=== PATIENT | female | born 1970 | race Caucasian/White ===

== ENCOUNTER 2017-03-01 13:33 | Inpatient (IN) | payer OTHER ==
[2017-03-01 15:05] VITALS: BMI 32.5
--- NOTE | 2017-03-01 17:20 | HP ---
CIWA Score - CIWA Score Nausea/Vomitin Muscle Tremors: 3 Anxiety: 3 Agitation: 0-Normal Activity Paroxysmal Sweats: 3 Orientation: 0-Oriented Tacttile Disturbances: 0-None Auditory Disturbances: 2-Mild Harshness/Frighten Visual Disturbances: 2-Mild Sensitivity Headache: 3-Moderate CIWA-Ar Total Score: 21 Admission ROS BHS - HPI Chief Complaint: "I'm here because I want to Detox from alcohol because I have never been so messed up in my life." Pt. is here to Detox from alcohol. Allergies/Adverse Reactions: Allergies Allergy/AdvReac Type Severity Reaction Status Date / Time ferrous fumarate Allergy Unknown Verified 03/01/17 16:39 [From Liver W/Iron] liver extract Allergy Unknown Verified 03/01/17 16:39 [From Liver W/Iron] vitamin B complex and C Allergy Unknown Verified 03/01/17 16:39 [From Liver W/Iron] History of Present Illness: Pt. is a 47 YO female here to Detox form Alcohol. Pt.has had 1 previous Detox admission at [facility] (2011). Pt. is a MMTP client at [facility] ([place] Daily Maintenance Dose: 70 mg PO. Last Day medicated: Today, 03/01/2017. Exam Limitations: No Limitations - Ebola screening Have you traveled outside of the country in the last 21 days: No Have you had contact with anyone from an Ebola affected area: No Have you been sick,other than usual withdrawal symptoms: No Do you have a fever: No - Review of Systems Constitutional: Chills, Diaphoresis, Fever, Loss of Appetite, Malaise, Night Sweats, Changes in sleep, Unintentional Wgt. Loss (Lost approx. 20 lbs. over last 3 months.) EENT: reports: Other (Upper Denture.) Respiratory: reports: SOB with Exertion Cardiac: reports: Palpitations, Syncope (Last episode: approx. 2 days ago. Pt. was not evaluated in ER after.) GI: reports: Constipated, Poor Appetite : reports: Incontinence Musculoskeletal: reports: Back Pain, Neck Pain Integumentary: reports: No Symptoms Reported Neuro: reports: Headache, Seizure (Due to Drug Withdrawal: approx. 1 month ago. Patient was not evaluated in ER after incident.), Tremors Endocrine: reports: No Symptoms Reported Hematology: reports: No Symptoms Reported Psychiatric: reports: Judgement Intact, Mood/Affect Appropiate, Orientated x3, Anxious, Depressed (On meds.) Other Systems: Reviewed and Negative Patient History - Patient Medical History Hx Anemia: No Hx Asthma: Yes Hx Chronic Obstructive Pulmonary Disease (COPD): No Hx Cancer: No Hx Cardiac Disorders: Yes (Heart Murmur.) Hx Congestive Heart Failure: No Hx Hypertension: Yes (On meds.) Hx Hypercholesterolemia: Yes (gemfibrozil) Hx Pacemaker: No HX Cerebrovascular Accident: No Hx Seizures: Yes (drug related-last episode was a month ago) Hx Dementia: No Hx Diabetes: Yes (NIDDM) Hx Gastrointestinal Disorders: Yes (acid reflux) Hx Liver Disease: No Hx Genitourinary Disorders: No Hx Sexually Transmitted Disorders: No Hx Renal Disease (ESRD): No (Pt. has 1 kidney; Donated Left Kidney (2001).) Hx Thyroid Disease: No Hx Human Immunodeficiency Virus (HIV): No (Last tested: approx. 1 month ago: NEGATIVE.) Hx Hepatitis C: No (Negative; Cannot remember when last tested.) Hx Depression: Yes (and Anxiety; On meds.) Hx Suicide Attempt: Yes (cut left wrist at age 16; PATIENT DENIES CURRENT SI/HI. ) Hx Bipolar Disorder: Yes (On meds.) Hx Schizophrenia: Yes Other Medical History: DENIES. - Patient Surgical History Past Surgical History: Yes Hx Neurologic Surgery: No Hx Cataract Extraction: No Hx Cardiac Surgery: No Hx Lung Surgery: No Hx Breast Surgery: No Hx Breast Biopsy: No Hx Abdominal Surgery: No Hx Appendectomy: No Hx Cholecystectomy: No Hx Genitourinary Surgery: No Hx Section: Yes (4 c-sections) Hx Orthopedic Surgery: No Other Surgical History: left nephrectomy in 06/26/2001 Anesthesia Reaction: No - PPD History Previous Implant?: Yes Documented Results: Negative w/o proof Implanted On Prior R Admission?: Yes Date: 10/03/11 PPD to be Administered?: Yes - Reproductive History Patient is a Female of Child Bearing Age (11 -55 yrs old): Yes Last Menstrual Period: 08/29/11 Patient : No - Smoking Cessation Smoking history: Current every day smoker Have you smoked in the past 12 months: Yes Aproximately how many cigarettes per day: 10 Cigars Per Day: 0 Hx Chewing Tobacco Use: No Initiated information on smoking cessation: Yes 'Breaking Loose' booklet given: 03/01/17 (GIVEN ON UNIT.) - Substance & Tx. History Hx Alcohol Use: Yes Hx Substance Use: Yes Substance Use Type: Alcohol, Opiates, Prescribed (MMTP: 70 MG.) Hx Substance Use Treatment: Yes (1 Previous Detox admission at [facility] in 2011.) - Substances Abused Alcohol-vodka/tequila Route: Oral Frequency: Daily Amount used: 2 pts. Age of first use: 46 Date of Last Use: 03/01/17 Family Disease History - Family Disease History Family History: Denies Admission Physical Exam S - Vital Signs Vital Signs: Vital Signs - 24 hr 03/01/17 14:58 Temperature 97 F L Pulse Rate 110 H Respiratory 20 Rate Blood Pressure 107/74 - Physical General Appearance: Yes: Nourished, Appropriately Dressed, Moderate Distress, Tremorous, Irritable, Sweating, Anxious HEENTM: Yes: Hearing grossly Normal, Normocephalic, Normal Voice, GERONIMO, Pharynx Normal Respiratory: Yes: Chest Non-Tender, Lungs Clear, No Respiratory Distress, No Accessory Muscle Use Neck: Yes: No masses,lesions,Nodules, Supple, Trachea in good position Breast: Yes: Breast Exam Deferred Cardiology: Yes: Regular Rhythm, Regular Rate, S1, S2 Abdominal: Yes: Normal Bowel Sounds, Non Tender, Soft, Protuberent Genitourinary: Yes: Incontinient Back: Yes: Decreased Range of Motion Musculoskeletal: Yes: Gait Steady, Back pain, Joint Stiffness Extremities: Yes: Tremors Neurological: Yes: Fully Oriented, Alert, Normal Mood/Affect, Normal Response Integumentary: Yes: Normal Color, Warm, Diaphoresis Lymphatic: Yes: Within Normal Limits - Diagnostic (1) Alcohol dependence with uncomplicated withdrawal Current Visit: Yes Status: Acute (2) Methadone maintenance therapy patient Current Visit: Yes Status: Chronic (3) Opioid dependence on agonist therapy Current Visit: Yes Status: Chronic (4) Nicotine dependence Current Visit: Yes Status: Chronic Qualifiers: Nicotine product type: cigarettes Substance use status: uncomplicated Qualified Code(s): F17.210 - Nicotine dependence, cigarettes, uncomplicated (5) Asthma Current Visit: Yes Status: Chronic Qualifiers: Asthma severity: mild intermittent Asthma complication type: uncomplicated Qualified Code(s): J45.20 - Mild intermittent asthma, uncomplicated (6) Hypertension Current Visit: Yes Status: Chronic Qualifiers: Hypertension type: essential hypertension Qualified Code(s): I10 - Essential (primary) hypertension (7) History of depression Current Visit: Yes Status: Chronic (8) History of bipolar disorder Current Visit: Yes Status: Chronic (9) History of schizophrenia Current Visit: Yes Status: Chronic (10) Type II diabetes mellitus Current Visit: Yes Status: Chronic Qualifiers: Diabetes mellitus complication status: without complication Diabetes mellitus local intermodal truck driver insulin use: without local intermodal truck driver use Qualified Code(s): E11.9 - Type 2 diabetes mellitus without complications (11) History of cardiac murmur Current Visit: Yes Status: Chronic (12) Hypercholesterolemia Current Visit: Yes Status: Chronic (13) History of seizures Current Visit: Yes Status: Chronic Comment: Due to Drug withdrawal. (14) Heartburn Current Visit: Yes Status: Chronic (15) H/O kidney donation Current Visit: Yes Status: Chronic Cleared for Admission [facility] - Detox or Rehab [facility] Level of Care: Medically Managed Detox Regimen/Protocol: Librium [facility] Breath Alcohol Content Breath Alcohol Content: 0.065 Urine Pregancy Test - Result Urine Test Results: Negative- NO Line Present Urine Drug Screen - Results Drug Screen Negative: No Urine Drug Screen Results: BZO-Benzodiazepines, MTD-Methadone
[2017-03-01] MEDS ORDERED: IBUPROFEN 400 MG TABLET (FP) PO PRN (17:59)
[2017-03-01] MEDS ORDERED: hydrOXYzine PAMOATE 50 MG CAPSULE (FP) PO PRN (17:59)
[2017-03-01] MEDS ORDERED: MAGNESIUM CITRATE 300 ML BOTTLE PO PRN (17:59)
[2017-03-01] MEDS ORDERED: MENTHOL/PHENOL 1 EACH UD MM PRN (17:59)
[2017-03-01] MEDS ORDERED: NICOTINE POLACRILEX 2 MG GUM BC PRN (17:59)
[2017-03-01] MEDS ORDERED: guaiFENesin/D-METHORPHAN HB 10 ML UNIT-DOSE CUPS PO PRN (17:59)
[2017-03-01] MEDS ORDERED: LOPERAMIDE HCL 2 MG CAPSULE PO PRN (17:59)
[2017-03-01] MEDS ORDERED: diphenhydrAMINE HCL 50 MG CAPSULE PO PRN (17:59)
[2017-03-01] MEDS ORDERED: MAG HYDROX/AL HYDROX/SIMETH 30 ML UNIT-DOSE CUP PO PRN (17:59)
[2017-03-01] MEDS ORDERED: ACETAMINOPHEN 325 MG TABLET (FP) PO PRN (17:59)
[2017-03-01] MEDS ORDERED: P-EPHED 60MG/TRIPROLIDI 2.5MG TABLET PO PRN (17:59)
[2017-03-01] MEDS ORDERED: MAGNESIUM HYDROX 2400MG/30ML ORAL SUSPENSION 30 ML CUP PO PRN (17:59)
[2017-03-01] MEDS ORDERED: chlordiazePOXIDE HCL 25 MG CAPSULE PO PRN (17:59)
[2017-03-01] MEDS ORDERED: ALBUTEROL SO4 6.7 GM HFA INHALER IH PRN (18:04)
[2017-03-01] MEDS ORDERED: metFORMIN HCL 500 MG TABLET (FP) PO SCH (18:15)
[2017-03-01] MEDS ORDERED: chlordiazePOXIDE HCL 25 MG CAPSULE PO ONE (19:15)
[2017-03-01] MEDS: NICOTINE 21 MG/24 HOURS TOPICAL PATCH TD SCH (20:48)
[2017-03-01] MEDS: chlordiazePOXIDE HCL 25 MG CAPSULE PO SCH (22:49)
[2017-03-01] MEDS: AMMONIUM LACTATE 12% LOTION 225 GM BOTTLE TP SCH (22:49)
[2017-03-01 23:31] LABS: URINE APPEARANCE SLCLOUDY; URINE BILIRUBIN NEGATIVE (NEGATIVE); URINE BLOOD NEGATIVE (NEGATIVE); URINE COLOR LTYELLOW; URINE GLUCOSE (UA) NEGATIVE (NEGATIVE); URINE KETONE NEGATIVE (NEGATIVE); URINE NITRITE NEGATIVE (NEGATIVE); URINE PROTEIN NEGATIVE (NEGATIVE); URINE UROBILINOGEN NEGATIVE mg/dL (0.2-1.0)
[2017-03-01 23:37] LABS: URINE LEUK ESTERASE 2+ (NEGATIVE)
[2017-03-01 23:39] LABS: URINE BACTERIA RARE /hpf (NONE SEEN); URINE RBC <1 /hpf (0-3); URINE WBC 14 /hpf (3-5)
[2017-03-02] MEDS: chlordiazePOXIDE HCL 25 MG CAPSULE PO SCH ×4 (05:38→22:40)
[2017-03-02] MEDS: metFORMIN HCL 500 MG TABLET (FP) PO SCH ×2 (08:49→18:08)
[2017-03-02] MEDS ORDERED: METHADONE HCL 10 MG TABLET PO SCH (09:45)
[2017-03-02] MEDS ORDERED: METHADONE HCL 40 MG DISPERSABLE TABLET ONE (10:12)
[2017-03-02] MEDS ORDERED: METHADONE HCL 10 MG TABLET ONE (10:13)
[2017-03-02] MEDS: HYDROCHLOROTHIAZIDE 25 MG TABLET (FP) PO SCH (10:25)
[2017-03-02] MEDS: FUROSEMIDE 40 MG TABLET (FP) PO SCH (10:25)
[2017-03-02] MEDS: AMMONIUM LACTATE 12% LOTION 225 GM BOTTLE TP SCH ×2 (10:25→22:41)
[2017-03-02] MEDS: LISINOPRIL 5 MG TABLET (FP) PO SCH (10:25)
[2017-03-02] MEDS: ASPIRIN 81 MG CHEWABLE TABLETS PO SCH (10:25)
[2017-03-02] MEDS: NICOTINE 21 MG/24 HOURS TOPICAL PATCH TD SCH (10:26)
[2017-03-02] MEDS: METHADONE 40 MG, METHADONE 30 MG PO SCH (10:26)
[2017-03-02 10:46] LABS: MCH 32.8 pg (25.7-33.7); MEAN CELL VOLUME 96.4 fl (80-96); PLATELET COUNT 187 K/MM3 (134-434); RDW 13.2 % (11.6-15.6); WHITE BLOOD COUNT 5.8 K/mm3 (4.0-10.0)
[2017-03-02 10:52] LABS: ALBUMIN 3.2 g/dl (3.4-5.0); SGOT/AST 35 U/L (15-37); SGPT/ALT 51 U/L (12-78)
[2017-03-02 10:55] LABS: ALK PHOS 83 U/L (45-117); ANION GAP 9 (8-16); BILIRUBIN,TOTAL 0.4 mg/dL (0.2-1.0); CALCIUM 8.3 mg/dL (8.5-10.1); CO2 31 mmol/L (21-32); CREATININE 0.9 mg/dL (0.55-1.02); GLUCOSE,RANDOM 101 mg/dL (74-106); TOT PROT 6.1 g/dl (6.4-8.2)
--- NOTE | 2017-03-02 13:52 | PN ---
S CIWA - CIWA Score Nausea/Vomitin Muscle Tremors: 3 Anxiety: 3 Agitation: 4-Moderately Restless Paroxysmal Sweats: 3 Orientation: 0-Oriented Tacttile Disturbances: 1-Very Mild Itch/Numbness Auditory Disturbances: 1-Very Mild Visual Disturbances: 1-Very Mild Sensitivity Headache: 2-Mild CIWA-Ar Total Score: 20 BHS Progress Note (SOAP) Subjective: irritability, anxiety, anxious, generalized body aches Objective: 03/02/17 13:51 Vital Signs - 8 hr 03/02/17 03/02/17 06:59 11:14 Temperature 96.4 F L 97.7 F Pulse Rate 56 L 74 Respiratory 18 20 Rate Blood Pressure 102/61 96/68 Laboratory Last Values WBC 5.8 K/mm3 (4.0-10.0) D 03/02/17 08:00 RBC 3.57 M/mm3 (3.60-5.2) L 03/02/17 08:00 Hgb 11.7 GM/dL (10.7-15.3) 03/02/17 08:00 Hct 34.4 % (32.4-45.2) 03/02/17 08:00 MCV 96.4 fl (80-96) H 03/02/17 08:00 MCH 32.8 pg (25.7-33.7) D 03/02/17 08:00 MCHC 34.0 g/dl (32.0-36.0) 03/02/17 08:00 RDW 13.2 % (11.6-15.6) 03/02/17 08:00 Plt Count 187 K/MM3 (134-434) D 03/02/17 08:00 MPV 8.0 fl (7.5-11.1) 03/02/17 08:00 Sodium 136 mmol/L (136-145) 03/02/17 08:00 Potassium 3.2 mmol/L (3.5-5.1) L D 03/02/17 08:00 Chloride 96 mmol/L (98-107) L 03/02/17 08:00 Carbon Dioxide 31 mmol/L (21-32) 03/02/17 08:00 Anion Gap 9 (8-16) 03/02/17 08:00 BUN 34 mg/dL (7-18) H D 03/02/17 08:00 Creatinine 0.9 mg/dL (0.55-1.02) 03/02/17 08:00 Creat Clearance w eGFR > 60 (>60) 03/02/17 08:00 POC Glucometer 125 UNITS (()) 03/02/17 05:40 Random Glucose 101 mg/dL (74-106) D 03/02/17 08:00 Calcium 8.3 mg/dL (8.5-10.1) L 03/02/17 08:00 Total Bilirubin 0.4 mg/dL (0.2-1.0) D 03/02/17 08:00 AST 35 U/L (15-37) D 03/02/17 08:00 ALT 51 U/L (12-78) D 03/02/17 08:00 Alkaline Phosphatase 83 U/L (45-117) D 03/02/17 08:00 Total Protein 6.1 g/dl (6.4-8.2) L D 03/02/17 08:00 Albumin 3.2 g/dl (3.4-5.0) L D 03/02/17 08:00 Urine Color Ltyellow 03/01/17 22:03 Urine Appearance Slcloudy 03/01/17 22:03 Urine pH 7.0 (5.0-8.0) 03/01/17 22:03 Urine Protein Negative (NEGATIVE) 03/01/17 22:03 Urine Glucose (UA) Negative (NEGATIVE) 03/01/17 22:03 Urine Ketones Negative (NEGATIVE) 03/01/17 22:03 Urine Blood Negative (NEGATIVE) 03/01/17 22:03 Urine Nitrite Negative (NEGATIVE) 03/01/17 22:03 Urine Bilirubin Negative (NEGATIVE) 03/01/17 22:03 Urine Urobilinogen Negative mg/dL (0.2-1.0) 03/01/17 22:03 Urine RBC <1 /hpf (0-3) 03/01/17 22:03 Urine WBC 14 /hpf (3-5) 03/01/17 22:03 Ur Epithelial Cells Rare /hpf (FEW) 03/01/17 22:03 Urine Bacteria Rare /hpf (NONE SEEN) 03/01/17 22:03 RPR Titer Nonreactive (NONREACTIVE) 03/02/17 08:00 labs noted Assessment: 03/02/17 13:51 withdrawal sx Plan: continue detox
--- NOTE | 2017-03-02 14:15 | PN ---
BHS Progress Note Note: Patient with potassium level of 3.2. Potassium supplement 20meq ordered for 3 days.
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
[2017-03-02] MEDS: POTASSIUM CHLORIDE TABS 20 MEQ TABLET.ER (FP) PO SCH (15:33)
[2017-03-02] MEDS: ARIPiprazole 15 MG TABLET PO SCH (22:39)
[2017-03-02] MEDS: ZOLPIDEM TARTRATE 10 MG TABLET (PARK CARE ONLY) PO PRN (22:40)
[2017-03-03] MEDS ORDERED: METHADONE HCL 40 MG DISPERSABLE TABLET ONE (05:16)
[2017-03-03] MEDS ORDERED: METHADONE HCL 10 MG TABLET ONE (05:16)
[2017-03-03] MEDS: chlordiazePOXIDE HCL 25 MG CAPSULE PO SCH ×3 (06:06→17:24)
[2017-03-03] MEDS: METHADONE 40 MG, METHADONE 30 MG PO SCH (06:07)
[2017-03-03] MEDS: metFORMIN HCL 500 MG TABLET (FP) PO SCH ×2 (07:04→17:24)
--- NOTE | 2017-03-03 10:38 | PN ---
[facility] CIWA - CIWA Score Nausea/Vomitin-No Nausea/No Vomiting Muscle Tremors: 3 Anxiety: 4-Mod. Anxious/Guarded Agitation: 3 Paroxysmal Sweats: 3 Orientation: 0-Oriented Tacttile Disturbances: 0-None Auditory Disturbances: 0-None Visual Disturbances: 0-None Headache: 0-None Present CIWA-Ar Total Score: 13 S Progress Note (SOAP) Subjective: Anxiety,tremors,interrupted sleep,restless Objective: 03/03/17 10:36 Vital Signs - 8 hr 03/03/17 03/03/17 03:30 06:42 Temperature 97.2 F L Pulse Rate 58 L Respiratory 18 16 Rate Blood Pressure 103/57 Laboratory Tests 03/01/17 03/01/17 03/02/17 17:09 22:03 05:40 WBC RBC Hgb Hct MCV MCH MCHC RDW Plt Count MPV Sodium Potassium Chloride Carbon Dioxide Anion Gap BUN Creatinine Creat Clearance w eGFR POC Glucometer 157 125 Random Glucose Calcium Total Bilirubin AST ALT Alkaline Phosphatase Total Protein Albumin Urine Color Ltyellow Urine Appearance Slcloudy Urine pH 7.0 Urine Protein Negative Urine Glucose (UA) Negative Urine Ketones Negative Urine Blood Negative Urine Nitrite Negative Urine Bilirubin Negative Urine Urobilinogen Negative Urine RBC <1 Urine WBC 14 Ur Epithelial Cells Rare Urine Bacteria Rare RPR Titer 03/02/17 03/02/17 03/02/17 08:00 08:00 08:00 WBC 5.8 D RBC 3.57 L Hgb 11.7 Hct 34.4 MCV 96.4 H MCH 32.8 D MCHC 34.0 RDW 13.2 Plt Count 187 D MPV 8.0 Sodium 136 Potassium 3.2 L D Chloride 96 L Carbon Dioxide 31 Anion Gap 9 BUN 34 H D Creatinine 0.9 Creat Clearance w eGFR > 60 POC Glucometer Random Glucose 101 D Calcium 8.3 L Total Bilirubin 0.4 D AST 35 D ALT 51 D Alkaline Phosphatase 83 D Total Protein 6.1 L D Albumin 3.2 L D Urine Color Urine Appearance Urine pH Urine Protein Urine Glucose (UA) Urine Ketones Urine Blood Urine Nitrite Urine Bilirubin Urine Urobilinogen Urine RBC Urine WBC Ur Epithelial Cells Urine Bacteria RPR Titer Nonreactive 03/03/17 06:05 WBC RBC Hgb Hct MCV MCH MCHC RDW Plt Count MPV Sodium Potassium Chloride Carbon Dioxide Anion Gap BUN Creatinine Creat Clearance w eGFR POC Glucometer 134 Random Glucose Calcium Total Bilirubin AST ALT Alkaline Phosphatase Total Protein Albumin Urine Color Urine Appearance Urine pH Urine Protein Urine Glucose (UA) Urine Ketones Urine Blood Urine Nitrite Urine Bilirubin Urine Urobilinogen Urine RBC Urine WBC Ur Epithelial Cells Urine Bacteria RPR Titer labs noted,on k-dur Assessment: 03/03/17 10:37 Withdrawal sx. Hyperkalemia Plan: Continue detox
[2017-03-03] MEDS: FUROSEMIDE 40 MG TABLET (FP) PO SCH (10:54)
[2017-03-03] MEDS: ASPIRIN 81 MG CHEWABLE TABLETS PO SCH (10:54)
[2017-03-03] MEDS: HYDROCHLOROTHIAZIDE 25 MG TABLET (FP) PO SCH (10:54)
[2017-03-03] MEDS: LISINOPRIL 5 MG TABLET (FP) PO SCH (10:54)
[2017-03-03] MEDS: AMMONIUM LACTATE 12% LOTION 225 GM BOTTLE TP SCH ×2 (10:55→23:03)
[2017-03-03] MEDS: POTASSIUM CHLORIDE TABS 20 MEQ TABLET.ER (FP) PO SCH (10:55)
[2017-03-03] MEDS: NICOTINE 21 MG/24 HOURS TOPICAL PATCH TD SCH (10:56)
[2017-03-03] MEDS: ARIPiprazole 15 MG TABLET PO SCH (22:36)
[2017-03-03] MEDS: chlordiazePOXIDE 5 MG CAPSULE PO SCH (22:36)
[2017-03-03] MEDS: ZOLPIDEM TARTRATE 10 MG TABLET (PARK CARE ONLY) PO PRN (22:37)
[2017-03-04] MEDS ORDERED: METHADONE HCL 40 MG DISPERSABLE TABLET ONE (04:36)
[2017-03-04] MEDS ORDERED: METHADONE HCL 10 MG TABLET ONE (04:36)
[2017-03-04] MEDS: chlordiazePOXIDE 5 MG CAPSULE PO SCH ×3 (06:00→17:05)
[2017-03-04] MEDS: METHADONE 40 MG, METHADONE 30 MG PO SCH (06:01)
[2017-03-04] MEDS: metFORMIN HCL 500 MG TABLET (FP) PO SCH ×2 (07:52→17:30)
[2017-03-04 10:06] LABS: ANION GAP 6 (8-16); CALCIUM 8.9 mg/dL (8.5-10.1); CO2 32 mmol/L (21-32); CREATININE 1.1 mg/dL (0.55-1.02); GLUCOSE,RANDOM 111 mg/dL (74-106)
[2017-03-04] MEDS: POTASSIUM CHLORIDE TABS 20 MEQ TABLET.ER (FP) PO SCH (10:48)
[2017-03-04] MEDS: ASPIRIN 81 MG CHEWABLE TABLETS PO SCH (10:48)
[2017-03-04] MEDS: LISINOPRIL 5 MG TABLET (FP) PO SCH (10:49)
[2017-03-04] MEDS: FUROSEMIDE 40 MG TABLET (FP) PO SCH (10:49)
[2017-03-04] MEDS: HYDROCHLOROTHIAZIDE 25 MG TABLET (FP) PO SCH (10:49)
[2017-03-04] MEDS: NICOTINE 21 MG/24 HOURS TOPICAL PATCH TD SCH (10:51)
[2017-03-04] MEDS: AMMONIUM LACTATE 12% LOTION 225 GM BOTTLE TP SCH ×2 (10:52→22:55)
--- NOTE | 2017-03-04 11:12 | PN ---
BHS Progress Note (SOAP) Subjective: anxiety sweats interrupted sleep Objective: 03/04/17 11:10 Vital Signs Temperature 98.1 F 03/04/17 10:25 Pulse Rate 72 03/04/17 10:25 Respiratory Rate 20 03/04/17 10:25 Blood Pressure 102/63 03/04/17 10:25 O2 Sat by Pulse Oximetry (%) Laboratory Tests 03/01/17 03/01/17 03/02/17 17:09 22:03 05:40 WBC RBC Hgb Hct MCV MCH MCHC RDW Plt Count MPV Sodium Potassium Chloride Carbon Dioxide Anion Gap BUN Creatinine Creat Clearance w eGFR POC Glucometer 157 125 Random Glucose Calcium Total Bilirubin AST ALT Alkaline Phosphatase Total Protein Albumin Urine Color Ltyellow Urine Appearance Slcloudy Urine pH 7.0 Ur Specific [place] 1.015 Urine Protein Negative Urine Glucose (UA) Negative Urine Ketones Negative Urine Blood Negative Urine Nitrite Negative Urine Bilirubin Negative Urine Urobilinogen Negative Urine RBC <1 Urine WBC 14 Ur Epithelial Cells Rare Urine Bacteria Rare RPR Titer 03/02/17 03/02/17 03/02/17 08:00 08:00 08:00 WBC 5.8 D RBC 3.57 L Hgb 11.7 Hct 34.4 MCV 96.4 H MCH 32.8 D MCHC 34.0 RDW 13.2 Plt Count 187 D MPV 8.0 Sodium 136 Potassium 3.2 L D Chloride 96 L Carbon Dioxide 31 Anion Gap 9 BUN 34 H D Creatinine 0.9 Creat Clearance w eGFR > 60 POC Glucometer Random Glucose 101 D Calcium 8.3 L Total Bilirubin 0.4 D AST 35 D ALT 51 D Alkaline Phosphatase 83 D Total Protein 6.1 L D Albumin 3.2 L D Urine Color Urine Appearance Urine pH Ur Specific [place] Urine Protein Urine Glucose (UA) Urine Ketones Urine Blood Urine Nitrite Urine Bilirubin Urine Urobilinogen Urine RBC Urine WBC Ur Epithelial Cells Urine Bacteria RPR Titer Nonreactive 03/03/17 03/04/17 03/04/17 06:05 05:42 07:00 WBC RBC Hgb Hct MCV MCH MCHC RDW Plt Count MPV Sodium 135 L Potassium 3.8 Chloride 97 L Carbon Dioxide 32 Anion Gap 6 L BUN 27 H D Creatinine 1.1 H D Creat Clearance w eGFR POC Glucometer 134 133 Random Glucose 111 H Calcium 8.9 Total Bilirubin AST ALT Alkaline Phosphatase Total Protein Albumin Urine Color Urine Appearance Urine pH Ur Specific [place] Urine Protein Urine Glucose (UA) Urine Ketones Urine Blood Urine Nitrite Urine Bilirubin Urine Urobilinogen Urine RBC Urine WBC Ur Epithelial Cells Urine Bacteria RPR Titer potassium improved awake/alert ambulating no acute distress Assessment: 03/04/17 11:11 withdrawal sx Plan: continue detox increase fluids d/c in am
--- NOTE | 2017-03-04 17:02 | EKG ---
Test Reason : Blood Pressure : / mmHG Vent. Rate : 080 BPM Atrial Rate : 080 BPM P-R Int : 156 ms QRS Dur : 098 ms QT Int : 392 ms P-R-T Axes : 038 045 016 degrees QTc Int : 452 ms NORMAL SINUS RHYTHM NORMAL ECG NO PREVIOUS ECGS AVAILABLE Confirmed by MILLA LEONE MD ([id number]) on 03/04/2017 5:02:44 PM Referred By: Hadley Berg Confirmed By:MILLA LEONE MD
[2017-03-04] MEDS: ZOLPIDEM TARTRATE 10 MG TABLET (PARK CARE ONLY) PO PRN (22:32)
[2017-03-04] MEDS: chlordiazePOXIDE HCL 10 MG CAPSULE PO SCH (22:32)
[2017-03-04] MEDS: ARIPiprazole 15 MG TABLET PO SCH (22:50)
[2017-03-05] MEDS ORDERED: METHADONE HCL 40 MG DISPERSABLE TABLET ONE (05:09)
[2017-03-05] MEDS ORDERED: METHADONE HCL 10 MG TABLET ONE (05:09)
[2017-03-05] MEDS: METHADONE 40 MG, METHADONE 30 MG PO SCH (06:00)
[2017-03-05] MEDS: chlordiazePOXIDE HCL 10 MG CAPSULE PO SCH (06:00)
[2017-03-05 07:05] VITALS: BP 102/69; PULSE 64; TEMP 97.8
--- NOTE | 2017-03-05 09:15 | DS ---
[facility] Detox Discharge Summary Admission Date: 03/01/17 Discharge Date: 03/05/17 - History Present History: Alcohol Dependence, MMTP Pertinent Past History: asthma, HTN, depresssion, anxiety, insomnia, h/o kidney donation, asthma, - Physical Exam Results Vital Signs: Vital Signs Temperature 97.8 F 03/05/17 06:00 Pulse Rate 64 03/05/17 06:00 Respiratory Rate 18 03/05/17 06:00 Blood Pressure 102/69 03/05/17 06:00 O2 Sat by Pulse Oximetry (%) Laboratory Tests 03/01/17 03/01/17 03/02/17 17:09 22:03 05:40 WBC RBC Hgb Hct MCV MCH MCHC RDW Plt Count MPV Sodium Potassium Chloride Carbon Dioxide Anion Gap BUN Creatinine Creat Clearance w eGFR POC Glucometer 157 125 Random Glucose Calcium Total Bilirubin AST ALT Alkaline Phosphatase Total Protein Albumin Urine Color Ltyellow Urine Appearance Slcloudy Urine pH 7.0 Ur Specific [place] 1.015 Urine Protein Negative Urine Glucose (UA) Negative Urine Ketones Negative Urine Blood Negative Urine Nitrite Negative Urine Bilirubin Negative Urine Urobilinogen Negative Urine RBC <1 Urine WBC 14 Ur Epithelial Cells Rare Urine Bacteria Rare RPR Titer 03/02/17 03/02/17 03/02/17 08:00 08:00 08:00 WBC 5.8 D RBC 3.57 L Hgb 11.7 Hct 34.4 MCV 96.4 H MCH 32.8 D MCHC 34.0 RDW 13.2 Plt Count 187 D MPV 8.0 Sodium 136 Potassium 3.2 L D Chloride 96 L Carbon Dioxide 31 Anion Gap 9 BUN 34 H D Creatinine 0.9 Creat Clearance w eGFR > 60 POC Glucometer Random Glucose 101 D Calcium 8.3 L Total Bilirubin 0.4 D AST 35 D ALT 51 D Alkaline Phosphatase 83 D Total Protein 6.1 L D Albumin 3.2 L D Urine Color Urine Appearance Urine pH Ur Specific [place] Urine Protein Urine Glucose (UA) Urine Ketones Urine Blood Urine Nitrite Urine Bilirubin Urine Urobilinogen Urine RBC Urine WBC Ur Epithelial Cells Urine Bacteria RPR Titer Nonreactive 03/03/17 03/04/17 03/04/17 06:05 05:42 07:00 WBC RBC Hgb Hct MCV MCH MCHC RDW Plt Count MPV Sodium 135 L Potassium 3.8 Chloride 97 L Carbon Dioxide 32 Anion Gap 6 L BUN 27 H D Creatinine 1.1 H D Creat Clearance w eGFR POC Glucometer 134 133 Random Glucose 111 H Calcium 8.9 Total Bilirubin AST ALT Alkaline Phosphatase Total Protein Albumin Urine Color Urine Appearance Urine pH Ur Specific [place] Urine Protein Urine Glucose (UA) Urine Ketones Urine Blood Urine Nitrite Urine Bilirubin Urine Urobilinogen Urine RBC Urine WBC Ur Epithelial Cells Urine Bacteria RPR Titer 03/05/17 06:02 WBC RBC Hgb Hct MCV MCH MCHC RDW Plt Count MPV Sodium Potassium Chloride Carbon Dioxide Anion Gap BUN Creatinine Creat Clearance w eGFR POC Glucometer 96 Random Glucose Calcium Total Bilirubin AST ALT Alkaline Phosphatase Total Protein Albumin Urine Color Urine Appearance Urine pH Ur Specific [place] Urine Protein Urine Glucose (UA) Urine Ketones Urine Blood Urine Nitrite Urine Bilirubin Urine Urobilinogen Urine RBC Urine WBC Ur Epithelial Cells Urine Bacteria RPR Titer Pertinent Admission Physical Exam Findings: withdrawal sx, dehydration, hypokalemia - Treatment Hospital Course: Detox Protocol Followed, Detoxed Safely, Responded well, Discharged Condition Good, Rehab Referral Accepted Patient has Accepted a Rehab Referral to: Yes - Medication Discharge Medications: Ambulatory Orders Lisinopril [Prinivil] 5 mg PO DAILY 10/01/11 Metformin HCl [Glucophage] 500 mg PO BID 10/01/11 Albuterol Sulfate Inhaler - [Ventolin HFA Inhaler -] 2 inh PO Q4H PRN 03/01/17 Aspirin [ASA -] 81 mg PO DAILY 03/01/17 Furosemide [Lasix -] 40 mg PO DAILY 03/01/17 Hydrochlorothiazide [Hctz -] 25 mg PO DAILY 03/01/17 Aripiprazole [Abilify -] 30 mg PO HS #30 tablet 03/02/17 - Diagnosis (1) Bipolar II disorder Current Visit: Yes Status: Chronic (2) Alcohol dependence with uncomplicated withdrawal Current Visit: Yes Status: Chronic (3) Asthma Current Visit: Yes Status: Chronic Qualifiers: Asthma severity: mild intermittent Asthma complication type: uncomplicated Qualified Code(s): J45.20 - Mild intermittent asthma, uncomplicated (4) H/O kidney donation Current Visit: Yes Status: Chronic (5) Heartburn Current Visit: Yes Status: Chronic (6) History of seizures Current Visit: Yes Status: Chronic (7) Hypercholesterolemia Current Visit: Yes Status: Chronic (8) Hypertension Current Visit: Yes Status: Chronic Qualifiers: Hypertension type: essential hypertension Qualified Code(s): I10 - Essential (primary) hypertension (9) Methadone maintenance therapy patient Current Visit: Yes Status: Chronic (10) Nicotine dependence Current Visit: Yes Status: Chronic Qualifiers: Nicotine product type: cigarettes Substance use status: uncomplicated Qualified Code(s): F17.210 - Nicotine dependence, cigarettes, uncomplicated (11) Type II diabetes mellitus Current Visit: Yes Status: Chronic Qualifiers: Diabetes mellitus complication status: without complication Diabetes mellitus correction insulin use: without ad terminal makeup operator use Qualified Code(s): E11.9 - Type 2 diabetes mellitus without complications (12) Schizoaffective disorder Current Visit: Yes Status: Ruled-out - AMA Did Patient Leave Against Medical Advice: No
[2017-03-05] MEDS: ASPIRIN 81 MG CHEWABLE TABLETS PO SCH (09:18)
[2017-03-05] MEDS: NICOTINE 21 MG/24 HOURS TOPICAL PATCH TD SCH (09:18)
[2017-03-05] MEDS: metFORMIN HCL 500 MG TABLET (FP) PO SCH (09:18)
[2017-03-05] MEDS: AMMONIUM LACTATE 12% LOTION 225 GM BOTTLE TP SCH (09:18)
[2017-03-05] MEDS: LISINOPRIL 5 MG TABLET (FP) PO SCH ×2 (09:19→09:23)
[2017-03-05] MEDS ORDERED: chlordiazePOXIDE HCL 10 MG CAPSULE PO ONE (09:21)
== END 2017-03-05 10:02 | disposition home or self-care (01) | DRG 773 ==
LOC: YASAS 13:33 → Y6N 18:56
PROVIDERS: ADMIT Internal Medicine; ATTEND Internal Medicine
PROC: HZ2ZZZZ Detoxification Services for Substance Abuse Treatment (ICD-10-PCS; principal; 2017-03-01)
DX: F11.20 Opioid dependence, uncomplicated (principal); F10.230 Alcohol dependence with withdrawal, uncomplicated; F17.210 Nicotine dependence, cigarettes, uncomplicated; F25.0 Schizoaffective disorder, bipolar type; F31.81 Bipolar II disorder; F25.9 Schizoaffective disorder, unspecified; I10 Essential (primary) hypertension; E11.9 Type 2 diabetes mellitus without complications; Z79.84 Long term (current) use of oral hypoglycemic drugs; R12 Heartburn; Z52.4 Kidney donor
CPT/HCPCS: 36415; 80048; 80053; 81003; 81015; 85027; 86593; 93005; 93010